=== PATIENT | male | born 1995 | race Caucasian/White ===

== ENCOUNTER 2021-04-04 21:10 | Emergency (ER) | payer OTHER ==
[~2021-04-04] VITALS: Ht 185.4 cm; Wt 90.7 kg
[2021-04-05] MEDS ORDERED: PRED20 PO (03:43)
== END 2021-04-05 04:40 | disposition home or self-care (01) ==
LOC: ER 21:10
DX: L25.5 Unspecified contact dermatitis due to plants, except food (principal)
CPT/HCPCS: 99283